=== PATIENT | female | born 1965 | race Hispanic/Latino ===

== ENCOUNTER → 2022-11-12 | Outpatient (CLI) | payer BC | END | disposition home or self-care (01) | LOC: SHCH 09:47 | PROVIDERS: ATTEND Internal Medicine Cardiovascular Disease | DX: I07.1 Rheumatic tricuspid insufficiency (principal) | CPT/HCPCS: 93306 ==

== ENCOUNTER → 2022-11-18 | Outpatient (CLI) | payer BC ==
[~2022-11-18] MED LIST: REGADENOSON 0.4 MG/5 ML PF SYG IVP ONE
== END | disposition home or self-care (01) ==
LOC: SHCH 07:51
PROVIDERS: ATTEND Internal Medicine Cardiovascular Disease
DX: R94.39 Abnormal result of other cardiovascular function study (principal); R07.9 Chest pain, unspecified; R06.00 Dyspnea, unspecified
CPT/HCPCS: 78452; 96374; 93017; J2785; A9500 ×2

== ENCOUNTER → 2023-01-31 | Outpatient (CLI) | payer OTHER | END | disposition home or self-care (01) | LOC: RAH 13:53 | PROVIDERS: ATTEND Internal Medicine Cardiovascular Disease | DX: Z13.6 Encounter for screening for cardiovascular disorders (principal); R07.9 Chest pain, unspecified | CPT/HCPCS: 75571 ==

== ENCOUNTER → 2023-02-08 | Outpatient (CLI) | payer BC ==
[2023-02-08 13:08] LABS: T4 (THYROXINE) 5.5 ug/dL (4.7-13.3); THYROID STIMULATING HORMONE 4.35 uIU/mL (0.36-3.74)
== END | disposition home or self-care (01) ==
LOC: LAB 09:48
PROVIDERS: ATTEND Physician Assistant
DX: I25.10 Atherosclerotic heart disease of native coronary artery without angina pectoris (principal)
CPT/HCPCS: 36415; 84436; 84443; 84479

== ENCOUNTER → 2025-05-21 | Outpatient (CLI) | payer BC ==
[2025-05-21 09:16] LABS: INR 0.97 (0.85-1.15)
--- NOTE | 2025-05-21 10:00 | NUR ---
ULTRASOUND GUIDED LEFT THYROID NODULE FINE NEEDLE ASPIRATION PROCEDURE PERFORMED BY DR. JESUS CLEARY. PUNCTURE SITE LEFT NECK AND PATIENT TOLERATED PROCEDURE WELL. SPECIMEN X4 COLLECTED AND RECEIVED BY ADAM FROM LAB. END OF PROCEDURE AT 0950. FINE NEEDLE REMOVED AND BAND-AID APPLIED- NO BLEEDING NOTED. DISCHARGE INSTRUCTIONS GIVEN TO PATIENT AND VERBALIZED UNDERSTANDING. PATIENT AMBULATORY AND DISCHARGED AAO X3 WITH NO C/O PAIN.
--- NOTE | 2025-05-21 13:55 | HMCIMG ---
PROCEDURE: Ultrasound-guided left thyroid nodule fine needle aspiration; dated INDICATION: Left thyroid nodule. STAFF: Judson ANESTHESIA: Local, 1% lidocaine plain FINDINGS: Informed consent was obtained. Patient was placed in the supine position prepped and draped in the usual sterile fashion. Under ultrasound guidance, the left thyroid nodule was localized. Local anesthetic was applied using 1% plain lidocaine. The nodule measured 1.24 x 1.64 x 1.37 maximum dimensions and appears heterogeneously heterogeneous. Fine needle aspiration using coaxial technique with an 18 gauge introducer needle and a 22-gauge aspiration needle was performed under ultrasound guidance. 4 passes were made and reviewed directly by the clinical technologist, who confirmed adequate cytology. The patient tolerated the procedure well. SPECIMEN: Left not thyroid nodule FNA passes, reviewed by building services technician COMPLICATIONS: None. EBL: Minimal. IMPRESSION: Status post ultrasound-guided left thyroid nodule fine needle aspiration, sent to pathology for further evaluation. Patient was offered right thyroid nodule which is smaller and agree
== END ==
LOC: RAH 08:25
PROVIDERS: ATTEND Internal Medicine
DX: E04.2 Nontoxic multinodular goiter (principal); I10 Essential (primary) hypertension; E03.9 Hypothyroidism, unspecified; E78.5 Hyperlipidemia, unspecified; E66.9 Obesity, unspecified; Z68.34 Body mass index [BMI] 34.0-34.9, adult; Z88.0 Allergy status to penicillin; Z91.041 Radiographic dye allergy status
CPT/HCPCS: 10005; 36415; 76942; 85610; 85730; 88173; 88305